=== PATIENT | female | born 2000 | race Hispanic/Latino ===

== ENCOUNTER 2022-09-24 15:52 | Emergency (ER) | payer MEDICAID ==
[~2022-09-24] VITALS: Ht 160 cm; Wt 92.5 kg
[2022-09-24 16:36] LABS: BASOPHILS % (AUTO) 0.3 % (0.0-5.0); EOSINOPHILS % (AUTO) 4.7 % (0.0-8.0); HEMATOCRIT 48.9 % (36-48); LYMPHOCYTES % (AUTO) 12.9 % (21.0-51.0); MEAN CORPUSCULAR HEMOGLOBIN 29.9 pg (27.0-33.0); MEAN CORPUSCULAR HGB CONC 33.7 g/dL (32.0-36.0); MEAN CORPUSCULAR VOLUME 88.6 fL (79-99); MONOCYTES % (AUTO) 3.9 % (3.0-13.0); NEUTROPHILS % (AUTO) 77.8 % (40.0-77.0); PLATELET COUNT (AUTO) 274 K/uL (130-400); RED BLOOD CELL COUNT(AUTO) 5.52 MIL/uL (4.00-5.50); RED CELL DISTRIBUTION WIDTH 12.3 % (11.0-15.5)
[2022-09-24 16:52] LABS: CREATININE 0.8 mg/dL (0.5-1.5); POTASSIUM 3.9 mmol/L (3.5-5.1)
[2022-09-24 17:00] LABS: ALBUMIN 3.8 g/dL (3.5-5.0)
[2022-09-24] MEDS ORDERED: DICYCLOMINE 20MG (10MG/ML) AMP IM STA (17:25)
[2022-09-24] MEDS ORDERED: ONDANSETRON 4MG INJ IVP ONE (17:30)
[2022-09-24] MEDS ORDERED: 0.9%NACL 1000ML 1,000 ML IV ONE (17:30)
[2022-09-24] MEDS ORDERED: FAMOTIDINE 20MG VIAL IV ONE (17:30)
[2022-09-24 19:42] LABS: APPEARANCE,URINE TURBID (CLEAR); BILIRUBIN,URINE NEGATIVE (NEGATIVE); COLOR,URINE YELLOW (YELLOW); GLUCOSE, URINE (UA) NEGATIVE (NEGATIVE); KETONES,URINE 10 mg/dL (NEGATIVE); LEUKOCYTE ESTERASE ,URINE NEGATIVE Leu/uL (NEGATIVE); NITRATE,URINE NEGATIVE (NEGATIVE); OCCULT BLOOD,URINE NEGATIVE (NEGATIVE); PH,URINE 5.5 (5.0-8.0); PROTEIN,URINE 20 mg/dL (NEGATIVE); UROBILINOGEN,URINE 0.2 mg/dL (0.2-1.0)
[2022-09-24 19:46] LABS: HCG,QUALITATIVE URINE NEGATIVE (NEGATIVE)
[2022-09-24] MEDS ORDERED: BACI1CAP6 PO (20:05)
[2022-09-24] MEDS ORDERED: DICY20TA2 PO (20:05)
[2022-09-24] MEDS ORDERED: ONDA4TAB10 PO (20:05)
[2022-09-24 20:15] LABS: BACTERIA,URINE RARE /HPF (None Seen); MUCUS,URINE FEW LPF (None Seen); SQUAMOUS EPITHELIAL CELL,UR RARE /HPF (0-2); YEAST,URINE BUDDING MOD /HPF (None Seen)
[2022-09-24 20:20] VITALS: BP 128/77
== END 2022-09-24 20:23 | disposition home or self-care (01) ==
LOC: EDH 15:52
DX: K52.9 Noninfective gastroenteritis and colitis, unspecified (principal)
CPT/HCPCS: 99284; 96374; 96361; 96375; 80053; 83690; 85025; 81001; 81025; 36415; 96372; J7030; J2405; J0500; S0028; J3490

== ENCOUNTER 2023-10-04 09:12 | Emergency (ER) | payer MEDICAID ==
[~2023-10-04] VITALS: Ht 160 cm; Wt 95.3 kg
[~2023-10-04 09:12] MED LIST: BACI1CAP6 PO; DICY20TA2 PO; ONDA4TAB10 PO
[2023-10-04 09:52] LABS: BASOPHILS # (AUTO) 0.03 K/uL (0.00-0.20); BASOPHILS % (AUTO) 0.3 % (0.0-5.0); EOSINOPHILS # (AUTO) 0.21 K/uL (0.00-0.70); EOSINOPHILS % (AUTO) 2.1 % (0.0-8.0); HEMATOCRIT 40.5 % (36-48); IMMATURE GRANULOCYTE ABSOLUTE 0.04 K/uL (0-1); LYMPHOCYTES # (AUTO) 1.7 K/uL (1.0-4.8); LYMPHOCYTES % (AUTO) 17.8 % (21.0-51.0); MEAN CORPUSCULAR HEMOGLOBIN 30.8 pg (27.0-33.0); MEAN CORPUSCULAR HGB CONC 34.3 g/dL (32.0-36.0); MEAN CORPUSCULAR VOLUME 89.8 fL (79-99); MONOCYTES # (AUTO) 0.6 K/uL (0.1-1.0); MONOCYTES % (AUTO) 5.8 % (3.0-13.0); NEUTROPHILS # (AUTO) 7.2 K/uL (1.8-7.7); NEUTROPHILS % (AUTO) 73.6 % (40.0-77.0); PLATELET COUNT (AUTO) 164 K/uL (130-400); RED BLOOD CELL COUNT(AUTO) 4.51 MIL/uL (4.00-5.50); RED CELL DISTRIBUTION WIDTH 12.8 % (11.0-15.5); WHITE BLOOD COUNT (AUTO) 9.8 K/uL (4.8-10.8)
[2023-10-04 09:59] LABS: BILIRUBIN,URINE NEGATIVE (NEGATIVE); COLOR,URINE YELLOW (YELLOW); GLUCOSE, URINE (UA) NEGATIVE (NEGATIVE); KETONES,URINE NEGATIVE (NEGATIVE); LEUKOCYTE ESTERASE ,URINE 25 Leu/uL (NEGATIVE); NITRATE,URINE NEGATIVE (NEGATIVE); OCCULT BLOOD,URINE NEGATIVE (NEGATIVE); PH,URINE 5.5 (5.0-8.0); PROTEIN,URINE 20 mg/dL (NEGATIVE); UROBILINOGEN,URINE 0.2 mg/dL (0.2-1.0)
[2023-10-04 10:01] LABS: ADD UA MICROSCOPIC YES; APPEARANCE,URINE HAZY (CLEAR)
[2023-10-04 10:04] LABS: BACTERIA,URINE FEW /HPF (None Seen); MUCUS,URINE RARE LPF (None Seen); RBC,URINE 0-1 /HPF (0-1); SQUAMOUS EPITHELIAL CELL,UR MANY /HPF (0-2)
[2023-10-04 10:05] LABS: CREATININE 0.6 mg/dL (0.5-1.0); POTASSIUM 3.8 mmol/L (3.5-5.1)
[2023-10-04 10:10] LABS: ALBUMIN 2.4 g/dL (3.5-5.0); BILIRUBIN,TOTAL 0.3 mg/dL (0.2-1.0); TOTAL PROTEIN, SERUM 7.2 g/dL (6.0-8.3)
[2023-10-04] MEDS ORDERED: CEPH500T PO (10:28)
[2023-10-04 13:12] VITALS: BP 124/68; PULSE 78; RESP 18; O2SAT 100
== END 2023-10-04 13:14 | disposition home or self-care (01) ==
LOC: EDH 09:12
DX: O23.43 Unspecified infection of urinary tract in pregnancy, third trimester (principal); O26.893 Other specified pregnancy related conditions, third trimester; R19.7 Diarrhea, unspecified; Z79.899 Other long term (current) drug therapy; Z3A.36 36 weeks gestation of pregnancy
CPT/HCPCS: 36415; 76805; 80053; 81001; 83690; 85025; 87088

== ENCOUNTER 2023-10-09 10:44 | Observation (INO) | payer MEDICAID ==
[~2023-10-09] VITALS: Ht 160 cm; Wt 95.3 kg
[~2023-10-09 10:44] MED LIST changes: +CEPH500T PO
[2023-10-09 10:48] VITALS: BP 142/89; PULSE 74; RESP 18
[2023-10-09 11:36] LABS: APPEARANCE,URINE CLEAR (CLEAR); BILIRUBIN,URINE NEGATIVE (NEGATIVE); COLOR,URINE LIGHT-YELLOW (YELLOW); GLUCOSE, URINE (UA) NEGATIVE (NEGATIVE); KETONES,URINE NEGATIVE (NEGATIVE); LEUKOCYTE ESTERASE ,URINE 250 Leu/uL (NEGATIVE); NITRATE,URINE NEGATIVE (NEGATIVE); OCCULT BLOOD,URINE SMALL (NEGATIVE); PROTEIN,URINE NEGATIVE (NEGATIVE); UROBILINOGEN,URINE 0.2 mg/dL (0.2-1.0)
[2023-10-09 11:38] LABS: ADD UA MICROSCOPIC YES
[2023-10-09 11:40] LABS: BACTERIA,URINE RARE /HPF (None Seen); MUCUS,URINE RARE LPF (None Seen); SQUAMOUS EPITHELIAL CELL,UR MOD /HPF (0-2)
[2023-10-10] MEDS ORDERED: PREN-134 PO (16:30)
== END 2023-10-09 13:15 | disposition home or self-care (01) ==
LOC: EDH 10:44 → LDH 10:57
PROVIDERS: ADMIT Obstetrics & Gynecology; ATTEND Obstetrics & Gynecology
DX: O26.893 Other specified pregnancy related conditions, third trimester (principal); R10.9 Unspecified abdominal pain; O46.93 Antepartum hemorrhage, unspecified, third trimester; Z3A.36 36 weeks gestation of pregnancy
CPT/HCPCS: 87088; 81001; G0378 ×2; G0379

== ENCOUNTER 2024-05-17 00:14 | Emergency (ER) | payer MEDICAID ==
[~2024-05-17] VITALS: Ht 160 cm; Wt 95.3 kg
[~2024-05-17 00:14] MED LIST changes: -BACI1CAP6 PO; -CEPH500T PO; -DICY20TA2 PO; -ONDA4TAB10 PO; +PREN-134 PO
[2024-05-17 00:24] VITALS: BP 119/78; PULSE 89; RESP 18; TEMP 98.8; O2SAT 98
--- NOTE | 2024-05-17 00:36 | ERN ---
ED Note History of Present Illness Stated Complaint: ALLERGIC REACTION Chief Complaint: Insect Bite Time Seen by MD: 00:27 Dictation: PATIENT IS A 24-YEAR-OLD FEMALE COMING IN TODAY WITH MULTIPLE DISCRETE BITES TO HER ARMS AND LEGS ONSET THIS MORNING. SHE STATES THEY ARE ITCHY AT TIMES. THEY ARE NOT EXTENDED. NOBODY ELSE IN THE FAMILY HAS A. NO ANGIOEDEMA NO SHORTNESS A BREATH. Allergies: Coded Allergies: No Known Allergies (Unverified Allergy, Unknown, 09/24/22) Home Meds Reported Medications Vit/Iron Fumarate/FA ( Tablet) 27 Mg Iron-800 Mcg Tablet, 1 EACH PO DAILYLUNCH, TAB 10/10/23 Past Medical History Past Medical History: Asthma Surgical History: None History: Not Applicable LMP: May 16, 2024 : 2 Para: 2 Aborts: 0 RN Note Reviewed/Agreed w/PFSH: Yes Review of System Dictation CONSTITUTIONAL: NEGATIVE EXCEPT FOR HPI HEAD/FACE: NEGATIVE EXCEPT FOR HPI EENT: NEGATIVE EXCEPT FOR HPI RESPIRATORY: NEGATIVE EXCEPT FOR HPI GASTROINTESTINAL/ABDOMINAL: NEGATIVE EXCEPT FOR HPI GENITOURINARY: NEGATIVE EXCEPT FOR HPI MUSCULOSKELETAL: NEGATIVE EXCEPT FOR HPI INTEGUMENTARY: NEGATIVE EXCEPT FOR HPI NEUROLOGICAL/PSYCH: NEGATIVE EXCEPT FOR HPI MULTIPLE INSECT BITES HEMATOLOGIC/LYMPHATIC: NEGATIVE EXCEPT FOR HPI ALL SYSTEMS NEGATIVE, EXCEPT NOTED ABOVE. 13 POINT REVIEW OF SYSTEMS ASSESSED AND ALL NEGATIVE EXCEPT FOR ABOVE. Initial Vital Sign VS Vital Signs Date Time Temp Pulse Resp B/P (MAP) Pulse Ox O2 Delivery O2 Flow Rate FiO2 05/17/24 00:15 97.9 93 20 123/85 98 Room Air 05/17/24 00:24 0 21 Physical Exam Dictation VITAL SIGNS REVIEWED GENERAL APPEARANCE: ALERT, ORIENTED X 3, NO ACUTE DISTRESS, WELL DEVELOPED, NOURISHED. HEAD AND FACE: NON-TRAUMATIC. EYES: PERRL, PINK CONJUNCTIVAS, EYELID NO TRAUMA, ANTERIOR CHAMBER WITH ARCUS SENILIS. EARS: PINNAS INTACT AND NO SIGNS OF TRAUMA OR ERYTHEMA EAR CANALS CLEAR AND NO DISCHARGE TM NO ERYTHEMA NOSE: NO DISCHARGE, NO BLEEDING. OROPHARYNX: MOUTH NORMAL, TONGUE PINK, PHARYNX CLEAR,NO ERYTHEMA, TONSILS NO EXUDATES, NO ABSCESSES NOTED, MUCOUS MEMBRANE MOIST NECK: SUPPLE, NON-TENDER, NO THYROMEGALY, NO MASSES, NO JVD, NO BRUITS BREAST:DEFERRED CHEST:NO TENDERNESS, NO CREPITUS, NO PARADOXICAL MOVEMENT, NO RETRACTIONS LUNGS:CLEAR, WELL-VENTILATED, SYMMETRIC, NO RALES, NO WHEEZING, NO RHONCHI, NO STRIDOR, GOOD BREATH SOUNDS BILATERALLY HEART: REGULAR RATE, REGULAR RHYTHM, NO MURMUR, NO GALLOPS VASCULAR: NO PERIPHERAL EDEMA, ABDOMEN: SOFT, POSITIVE BOWEL SOUNDS, NONDISTENDED, NO GUARDING, NONTENDER, NO REBOUND, NO MASSES NO HEPATOMEGALY, NO SPLENOMEGALY, NO WHITLOCK'S SIGN, NO HERNIAS. RECTAL: DEFERRED GENITAL: DEFERRED NEUROLOGICAL: NORMAL SPEECH, MOTOR FUNCTION INTACT, SENSORY FUNCTION INTACT MUSCULOSKELETAL: NECK NONTENDER, FULL RANGE OF MOTION, BACK NONTENDER, FULL RANGE OF MOTION, EXTREMITIES: NONTENDER, FULL RANGE OF MOTION SKIN: COLOR PINK, DRY, MULTIPLE DISCRETE INSECT BITE/LESIONS TO BILATERAL UPPER ARMS POSTERIOR THIGHS AND LEGS. LYMPHATIC: DEFERRED Results (Laboratory/Radiology) Labs Reviewed?: Yes ED Course ED Course Orders Procedure Category Date Status Time Dexamethasone 4mg/Ml PHA 05/17/24 In Process 1ml Vial (Dexametha 01:00 Diphenhydramine Hcl PHA 05/17/24 In Process (Benadryl Cap) 01:00 Current Medications Medications (Trade) Dose Ordered Sig/Mary Route PRN Reason Start Time Stop Time Status Last Admin Dose Admin Dexamethasone Sodium Phosphate (dexaMETHasone 4MG/ML 1ML VIAL) 8 mg ONCE ONCE IM 05/17/24 01:00 05/17/24 01:01 05/17/24 00:40 Diphenhydramine HCl (BENAdryl CAP) 25 mg ONCE ONCE PO 05/17/24 01:00 05/17/24 01:01 05/17/24 00:40 Vital Signs Date Time Temp Pulse Resp B/P (MAP) Pulse Ox O2 Delivery O2 Flow Rate FiO2 05/17/24 00:24 98.8 89 18 119/78 98 Room Air* 0 21 05/17/24 00:15 97.9 93 20 123/85 98 Room Air 0045, WE WILL TREAT PATIENT EMPIRICALLY FOR INSECT BITES WITH 1ST GENERATION ANTIHISTAMINE AND DECADRON TOLD TO SEE HER PRIMARY CARE DOCTOR. Medical Decision Making MDM MEDICAL DISCHARGE MAKING BASED ON EMPIRIC TREATMENT OF INSECT BITES. PATIENT GIVEN DECADRON AND BENADRYL TOLD TO SEE HER PRIMARY CARE DOCTOR FRIDAY DX & DISP Disposition: Discharge Departure Impression: Primary Impression: Multiple insect bites Condition: Stable Scripts Diphenhydramine HCl (Benadryl) 50 Mg Cap 50 MG PO Q6H for itching/rash, #20 CAP 0 Refills Prov: ANIKA BILLINGS NP 05/17/24 Additional Instructions: FOLLOW-UP WITH PRIMARY CARE PROVIDER IN 1 TO 2 DAYS. TAKE MEDICATIONS DIRECTED HERE IN THE EMERGENCY ROOM. OKAY TO CONTINUE HOME MEDICATIONS UNLESS OTHERWISE DISCUSSED DURING YOUR VISIT IN THE EMERGENCY ROOM TODAY. RETURN TO YOUR NEAREST EMERGENCY ROOM IF SYMPTOMS WORSEN OR IF THERE IS NO IMPROVEMENT. CALL 911 IF YOU NEED IMMEDIATE ASSISTANCE. TAKE TYLENOL OR MOTRIN [id number] NEEDED AND IF NO CONTRAINDICATIONS ARE PRESENT. INCREASE ORAL HYDRATION. A WOUND CULTURE OR URINE CULTURE WAS ORDERED HERE IN THE EMERGENCY ROOM DEPARTMENT PLEASE FOLLOW-UP WITH PRIMARY CARE PROVIDER AND ADVISE THEM TO GET REPEAT PORTS FROM OUR FACILITY. IF YOU HAD ANY BUFFY WRAP/SPLINTS THAT WERE APPLIED HERE, PLEASE DO NOT REMOVE THEM UNTIL YOU SEE YOUR PRIMARY CARE OR SPECIALTY. TAKE BENADRYL EVERY 6-8 HOURS NEEDED FOR ITCHING. SUGGEST CALAMINE [id number] LOTION TWO TO 3 TIMES A DAY TO BITES. SEE YOUR PRIMARY CARE DOCTOR FOR FOLLOW UP. Referrals: SELF,REFERRAL (PCP) Time of Disposition: 00:47 I have reviewed the case, and I agree with, Diagnosis and Plan ANIKA BILLINGS NP May 17, 2024 00:36
[2024-05-17] MEDS: dexaMETHasone SOD PHOSPHATE 4 MG/ML 1ML VIAL IM ONE (00:40)
[2024-05-17] MEDS: DiphenhydrAMINE HCL 25 MG CAPSULE PO ONE (00:40)
[2024-05-17] MEDS ORDERED: DIPH50 PO (00:47)
== END 2024-05-17 01:01 | disposition home or self-care (01) ==
LOC: EDH 00:14
DX: S40.862A Insect bite (nonvenomous) of left upper arm, initial encounter (principal); S40.861A Insect bite (nonvenomous) of right upper arm, initial encounter; S70.362A Insect bite (nonvenomous), left thigh, initial encounter; S70.361A Insect bite (nonvenomous), right thigh, initial encounter; J45.909 Unspecified asthma, uncomplicated; Z79.899 Other long term (current) drug therapy; W57.XXXA Bitten or stung by nonvenomous insect and other nonvenomous arthropods, initial encounter; Y93.89 Activity, other specified; Y92.89 Other specified places as the place of occurrence of the external cause; Y99.8 Other external cause status
CPT/HCPCS: 99283; 96372; J1100; Q0163